=== PATIENT | male | born 1955 | race American Indian/Alaskan Native ===

== ENCOUNTER 2020-03-24 19:37 | Inpatient (IN) | payer SELFPAY ==
[2020-03-24] MEDS ORDERED: SODIUM CHLORIDE 0.9% 1000 ML 1,000 ML IV ONE (23:23)
--- NOTE | 2020-03-24 23:23 | Emergency Department Report ---
HPI - General Chief Complaint: Dyspnea/Respdistress Time Seen by Provider: 03/24/20 23:07 - HPI HPI: This is a 65-year-old -[place] male presents to the emergency department with a complaint of a 2-week history of a mixed dry and productive cough, shortness of breath and intermittent headaches. He does admit to some subjective fevers but has not actually checked his temperature. He denies any chest pain, vomiting, diarrhea, abdominal pain. He has tried some xanc-qqj-lriyvwa Robitussin for his symptoms without much relief. 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 He denies any past medical history. No recent travel. ED Past Medical Hx - Past Medical History Previous Medical History?: No - Surgical History Past Surgical History?: No - Social History Smoking Status: Never Smoker Substance Use Type: None ED Review of Systems ROS: Stated complaint: HEADACHE,SOB,COUGH Other details as noted in HPI Constitutional: chills, fever (Subjective) Eyes: denies: eye pain, vision change ENT: denies: ear pain, throat pain Respiratory: cough, shortness of breath Cardiovascular: denies: chest pain, palpitations Gastrointestinal: denies: abdominal pain, vomiting Genitourinary: denies: dysuria, discharge Musculoskeletal: denies: back pain, arthralgia Skin: denies: rash, lesions Neurological: headache. denies: weakness, numbness Physical Exam - Physical Exam Vital Signs: Vital Signs 03/24/20 03/24/20 20:03 22:59 Temperature 100.2 F H Pulse Rate 99 H 90 Respiratory 18 20 Rate Blood Pressure 100/62 O2 Sat by Pulse 88 90 Oximetry Physical Exam: GENERAL: The patient is well-developed well-nourished. HENT: Normocephalic. Atraumatic. Patient has moist mucous membranes. EYES: Extraocular motions are intact. NECK: Supple. Trachea is midline. CHEST/LUNGS: There is tachypnea but no conversational dyspnea or accessory muscle use. A dry cough is heard during examination. HEART/CARDIOVASCULAR: Regular. There is mild tachycardia. There is no murmur. ABDOMEN: Abdomen is soft, nontender. Patient has normal bowel sounds. SKIN: Skin is warm and dry. NEURO: The patient is awake, alert, and oriented. The patient is cooperative. The patient has no focal neurologic deficits. Normal speech. MUSCULOSKELETAL: There is no tenderness or deformity. There is no evidence of acute injury. ED Course Vital Signs 03/24/20 03/24/20 20:03 22:59 Temperature 100.2 F H Pulse Rate 99 H 90 Respiratory 18 20 Rate Blood Pressure 100/62 O2 Sat by Pulse 88 90 Oximetry ED Medical Decision Making - Lab Data Result diagrams: 03/24/20 23:27 03/24/20 23:27 - EKG Data -: EKG Interpreted by Me EKG shows normal: sinus rhythm, axis, intervals, QRS complexes, ST-T waves Rate: normal - EKG Data When compared to previous EKG there are: previous EKG unavailable Interpretation: normal EKG - Radiology Data Radiology results: image reviewed interpreted by me: Chest x-ray shows bilateral patchy opacities concerning for pneumonia. - Medical Decision Making This patient presents with a two-week history of a cough, shortness of breath and headaches. On examination he has some tachypnea and there is a cough heard. Chest x-ray shows mild patchy bilateral opacities concerning for developing pneumonia. Patient's labs show acute renal failure and elevated inflammatory markers. The patient had a room air pulse ox of 90% through triage and he went down to 84% while in his room. He was placed on 4 L nasal cannula and went up into the low to mid 90s. All this together appears concerning for COVID-19. He was empirically covered with some antibiotics, given IV fluid resuscitation and a dose of Solu-Medrol. The patient will be admitted to the hospital for further evaluation and treatment and was accepted for admission by the hospitalist, Dr. Macedo. Critical Care Time: Yes Critical care time in (mins) excluding proc time.: 35 Critical care attestation.: If time is entered above; I have spent that time in minutes in the direct care of this critically ill patient, excluding procedure time. Critical care time is spent on this patient in doing his initial evaluation, multiple re-evaluations, ordering and interpretation of labs and imaging, supplemental oxygen for his hypoxemia, IV fluid resuscitation and empiric IV antibiotics, multiple discussions with the patient. Critical Care Time: 35 minutes ED Disposition Clinical Impression: Suspected COVID-19 virus infection, Hypoxia, Transaminitis Acute renal failure Qualifiers: Acute renal failure type: unspecified Qualified Code(s): N17.9 - Acute kidney failure, unspecified Disposition: DC-09 OP ADMIT IP TO THIS HOSP Is pt being admited?: Yes Condition: Serious Time of Disposition: 02:28
[2020-03-24] MEDS ORDERED: cefTRIAXone/NS 1 GM/50 ML 1 GM/50 ML BAG IV ONE (23:41)
[2020-03-24] MEDS ORDERED: AZITHROMYCIN 500 MG in SODIUM CHLORIDE 0.9% 250ML 250 ML IV ONE (23:41)
--- NOTE | 2020-03-24 23:41 | XRay Report ---
CHEST 2 VIEWS INDICATION / CLINICAL INFORMATION: cough and GERMAINE. COMPARISON: None available. FINDINGS: SUPPORT DEVICES: None. HEART / MEDIASTINUM: No significant abnormality. LUNGS / PLEURA: Streaky parenchymal disease both lower lobes characteristic for pneumonia No pneumoth orax. ADDITIONAL FINDINGS: No significant additional findings. IMPRESSION: 1. Streaky bilateral bronchopneumonia. Signer Name: Yassine Adair MD Signed: 03/24/2020 11:37 PM Workstation Name: [id number]
[2020-03-24] MEDS ORDERED: ACETAMINOPHEN 325 MG TAB PO ONE (23:42)
[2020-03-24 23:53] LABS: Basophils % (Auto) 0.5 % (0.0-1.8); Hematocrit 38.5 % (35.5-45.6); Hemoglobin 12.2 gm/dl (11.8-15.2); Lymphocytes % (Auto) 12.2 % (13.4-35.0); Mean Corpuscular HGB Conc 32 % (32-34); Mean Corpuscular Volume 94 fl (84-94); Monocytes # (Auto) 0.9 K/mm3 (0.0-0.8); Monocytes % (Auto) 10.6 % (0.0-7.3); Platelet Count 325 K/mm3 (140-440); Red Blood Count 4.08 M/mm3 (3.65-5.03); Red Cell Distribution Width 12.8 % (13.2-15.2)
[2020-03-25 01:39] LABS: Albumin 3.4 g/dL (3.9-5)
[2020-03-25] MEDS ORDERED: methylPREDNISolone Sod Succinate 125 MG/2 ML INJ IV ONE (02:25)
[2020-03-25] MEDS ORDERED: ACETAMINOPHEN 325 MG TAB PO PRN (02:58)
[2020-03-25] MEDS ORDERED: ONDANSETRON 4 MG/2 ML INJ IV PRN (02:58)
[2020-03-25] MEDS ORDERED: MAGNESIUM HYDROXIDE (MOM) ORAL LIQD UDC PO PRN (02:58)
[2020-03-25] MEDS ORDERED: SODIUM CHLORIDE 0.9% 1000 ML 1,000 ML IV SCH (03:00)
--- NOTE | 2020-03-25 03:10 | History and Physical Report ---
History of Present Illness Date of examination: 03/25/20 Date of admission: 03/25/2020 Chief complaint: Cough Generalized body aches and pain History of present illness: 65-year-old -[place]in[place] male with no significant past medical history presenting to the emergency room today complaining of a two-week history of cough, shortness of breath and occasional headaches. Cough has been occasionally productive of some whitish sputum. He has had some subjective f ever at home but denies any chills. He denies any chest pain, no nausea vomiting, no diarrhea, no abdominal pain. 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 He denies any sick contacts and no recent travel. He has used some sqde-sjf-sizmibs cough medication without any significant relief. Evaluation in the emergency room today shows some patchy bilateral infiltrates on the chest x-ray. Patient was also found to have elevated BUN and creatinine and also elevated liver enzymes. He was found to be slightly hypoxic upon arrival in the emergency room He has been admitted for for pneumonia will be ruled out for possible COVID-19. He has been started on empiric IV antibiotics, IV steroids and also placed on isolation precautions. Past History Past Medical History: No medical history Past Surgical History: No surgical history Social history: no significant social history Family history: no significant family history Medications and Allergies Allergies Allergy/AdvReac Type Severity Reaction Status Date / Time No Known Allergies Allergy Unverified 03/24/20 22:57 Active Meds: Active Medications Sodium Chloride (Nacl 0.9% 1000 Ml) 1,000 mls @ 125 mls/hr IV ONCE ONE Stop: 03/25/20 07:22 Last Admin: 03/24/20 23:50 Dose: 125 mls/hr Documented by: Review of Systems Constitutional: fever, chills Ears, nose, mouth and throat: no nasal congestion, no sore throat Cardiovascular: no chest pain, no palpitations Respiratory: cough, shortness of breath Gastrointestinal: no abdominal pain, no nausea, no vomiting, no diarrhea Genitourinary Male: no dysuria, no hematuria, no flank pain Musculoskeletal: no neck pain, no low back pain Integumentary: no rash, no pruritis Neurological: headaches, no confusion Psychiatric: no anxiety, no depression Exam - Constitutional Vitals: Temp Pulse Resp BP Pulse Ox 100.3 F H 79 26 H 98/62 94 03/24/20 23:15 03/25/20 02:30 03/25/20 02:30 03/25/20 02:30 03/25/20 02:30 General appearance: Present: no acute distress, well-nourished - EENT Eyes: Present: PERRL, EOM intact. Absent: scleral icterus ENT: hearing intact, clear oral mucosa, dentition normal - Neck Neck: Present: supple, normal ROM - Respiratory Respiratory effort: normal Respiratory: bilateral: diminished - Cardiovascular Rhythm: regular Heart Sounds: Present: S1 & S2. Absent: gallop, systolic murmur, diastolic murmur, rub - Extremities Extremities: no ischemia, pulses intact, pulses symmetrical, No edema, Full ROM Peripheral Pulses: within normal limits - Abdominal General gastrointestinal: Present: soft, non-tender, non-distended, normal bowel sounds. Absent: mass - Integumentary Integumentary: Present: clear, warm, dry - Musculoskeletal Musculoskeletal: strength equal bilaterally - Psychiatric Psychiatric: appropriate mood/affect, intact judgment & insight, memory intact, cooperative - Neurologic Neurologic: CNII-XII intact, no focal deficits, moves all extremities HEART Score - HEART Score Troponin: Troponin T 0.027 ng/mL (0.00-0.029) 03/24/20 23:27 Results - Labs CBC & Chem 7: 03/24/20 23:27 03/24/20 23:27 Labs: Abnormal lab results 03/24/20 03/24/20 03/24/20 Range/Units 23:27 23:27 23:27 RDW 12.8 L (13.2-15.2) % Lymph % (Auto) 12.2 L (13.4-35.0) % [place]on % (Auto) 10.6 H (0.0-7.3) % Lymph # 1.0 L (1.2-5.4) K/mm3 [place]on # 0.9 H (0.0-0.8) K/mm3 Seg Neutrophils % 76.7 H (40.0-70.0) % D-Dimer 1436.60 H (0-234) ng/mlDDU Sodium 135 L (137-145) mmol/L Chloride 89.0 L (98-107) mmol/L BUN 68 H (9-20) mg/dL Creatinine 4.5 H (0.8-1.5) mg/dL Total Bilirubin 1.30 H (0.1-1.2) mg/dL AST 149 H (5-40) units/L ALT 95 H (7-56) units/L Albumin 3.4 L (3.9-5) g/dL Assessment and Plan - Patient Problems (1) Suspected COVID-19 virus infection Current Visit: Yes Status: Acute Plan to address problem: Patient placed on isolation precautions. He has been placed on empiric IV antibiotics and IV steroid. We will request consult infectious disease for evaluation and recommendation. We will also keep oxygen saturation greater or equal to 94%. (2) Acute renal failure Current Visit: Yes Status: Acute Plan to address problem: Etiology is unclear. No baseline BUN creatinine to compare with. We will place a consult to nephrology for evaluation and recommendation. Meanwhile we will schedule for renal ultrasound. (3) Hypoxia Current Visit: Yes Status: Acute Plan to address problem: Probably secondary to underlying pneumonia. We will keep O2 saturation greater or equal to 94%. (4) Transaminitis Current Visit: Yes Status: Acute Plan to address problem: Will monitor liver enzymes. Will also check hepatitis profile. We will place a consult to gastroenterology for evaluation and recommendation. (5) DVT prophylaxis Current Visit: Yes Status: Acute Plan to address problem: Patient placed on subcutaneous heparin. (6) Full code status Current Visit: Yes Status: Acute
[2020-03-25 04:21] LABS: C-Reactive Protein 22.9 mg/dL (0.00-1.30)
[2020-03-25 04:47] LABS: Hepatitis B Surface Antigen Non-Reactive (Negative); Hepatitis C Virus Antibody Non-Reactive (NonReactive)
[2020-03-25] MEDS: HEPARIN 5,000 UNIT/1 ML VIAL SUB-Q SCH ×3 (06:10→21:50)
[2020-03-25] MEDS ORDERED: cefTRIAXone/NS 2 GM/100 ML 2 GM/100 ML BAG IV ONE (09:36)
[2020-03-25] MEDS: AZITHROMYCIN 500 MG in SODIUM CHLORIDE 0.9% 250ML 250 ML IV SCH (09:41)
[2020-03-25] MEDS: cefTRIAXone/NS 2 GM/100 ML 2 GM/100 ML BAG IV SCH (09:41)
--- NOTE | 2020-03-25 11:15 | Consultation ---
History of Present Illness - Reason for Consult Consult date: 03/25/20 acute renal failure - History of Present Illness The patient is a 65 YO AAM with no significant past medical history who pre sented to [facility] ED 03/24 with complain of 2 week history of cough, shortness of breath, fatigue, intermittent fever with chills, occasional headaches, cough occasionally productive of some whitish sputum, decreased energy, decreased smell and taste. He denies any chest pain, nausea, vomiting, diarrhea, abdominal pain, dizziness, syncope, leg swelling, dysuria, hematuria or rash. 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 He denies any sick contacts and no recent travel. He has used some upje-bpn-txmflso cough medication without any significant relief. He was found have sats of 88% on arrival to ED. Evaluation in the emergency room today shows some patchy bilateral infiltrates on the chest x-ray. Patient was also found to have BUN of 68, creatinine 4.5 and also elevated liver enzymes. COVID-19 test came back positive. He has been admitted for for COVID-19 pneumonia. Nephrology was consulted for further evaluation and treatment of ARIELLA. Past History Past Medical History: No medical history, other (See HPI.) Past Surgical History: No surgical history Social history: no significant social history Family history: no significant family history Medications and Allergies Allergies Allergy/AdvReac Type Severity Reaction Status Date / Time No Known Allergies Allergy Unverified 03/24/20 22:57 Home Medications Medication Instructions Recorded Confirmed Last Taken Type No Known Home Medications [No 03/25/20 03/25/20 Unknown History Reported Home Medications] Active Meds: Active Medications Acetaminophen (Tylenol) 650 mg PO Q4H PRN PRN Reason: Pain MILD(1-3)/Fever >100.5/SAGASTUME Heparin Sodium (Porcine) (Heparin) 5,000 unit SUB-Q Q8HR INDIRA Last Admin: 03/25/20 06:10 Dose: 5,000 unit Documented by: Ceftriaxone Sodium (Rocephin/Ns 2 Gm/100 Ml) 2 gm in 100 mls @ 200 mls/hr IV Q24HR INDIRA; Protocol Last Admin: 03/25/20 09:41 Dose: 200 mls/hr Documented by: Azithromycin 500 mg/ Sodium (Chloride) 250 mls @ 250 mls/hr IV Q24HR INDIRA; Protocol Last Admin: 03/25/20 09:41 Dose: 250 mls/hr Documented by: Sodium Chloride (Nacl 0.9% 1000 Ml) 1,000 mls @ 75 mls/hr IV DIRECT INDIRA Magnesium Hydroxide (Milk Of Magnesia) 30 ml PO Q4H PRN PRN Reason: Constipation Ondansetron HCl (Zofran) 4 mg IV Q8H PRN PRN Reason: Nausea And Vomiting Sodium Chloride (Sodium Chloride Flush Syringe 10 Ml) 10 ml IV BID INDIRA Last Admin: 03/25/20 09:41 Dose: 10 ml Documented by: Sodium Chloride (Sodium Chloride Flush Syringe 10 Ml) 10 ml IV PRN PRN PRN Reason: LINE FLUSH Review of Systems Constitutional: fever, chills, anorexia, fatigue, malaise, no weight loss, no weight gain Cardiovascular: no chest pain, no orthopnea, no edema, no syncope, no lightheadedness, no shortness of breath, no dyspnea on exertion Respiratory: cough, cough with sputum, no excessive sputum, no hemoptysis Gastrointestinal: nausea, vomiting, melena, no abdominal pain, no diarrhea Genitourinary Male: no dysuria, no hematuria Integumentary: no rash Neurological: no convulsions, no aphasia, no change in speech, no change in mentation, no confusion Exam - Vital Signs Vital signs: Vital Signs Temp Pulse Resp BP Pulse Ox 100.2 F H 99 H 18 100/62 88 03/24/20 20:03 03/24/20 20:03 03/24/20 20:03 03/24/20 20:03 03/24/20 20:03 - General Appearance General appearance: well-developed, well-nourished, appears stated age, other (not in distress) EENT: ATNC, PERRL, hearing intact, vision intact Neck: Present: neck supple, trachea midline Respiratory: Clear to Ascultation Heart: regular, S1S2, faint heart tones Gastrointestinal: Present: normoactive bowel sounds. Absent: tenderness, distended Integumentary: no rash, warm and dry Neurologic: no focal deficit, no asterixis, alert and oriented x3 Musculoskeletal: Present: other (no edema) Psychiatric: cooperative Results - Lab Results 03/26/20 07:14 03/26/20 07:14 Most recent lab results Calcium 9.0 mg/dL (8.4-10.2) 03/24/20 23:27 - Image Kidney/bladder ultrasound: pending Assessment and Plan 1. Acute kidney injury: Vasomotor ARIELLA in the setting volume depletion. Urine studies and Renal US ordered. Baseline renal function is unknown. Monitor renal function. Avoid nephrotoxic agents. Meds dosage based on GFR. 2. FEN: Mild Hyponatremia, monitor. Monitor lytes and volume status. 3. Bilateral PNA: 2/ COVID-19 PNA. On multiple abx. Follow cultures. ID consulted. 4. COVID-19 infection: ID consulted. 5. Elevated LFTs: Seen by GI. Monitor.
--- NOTE | 2020-03-25 11:54 | Gastroenterology Consultation ---
History of Present Illness - Reason for Consult Consult date: 03/25/20 elevated liver enzymes Requesting physician: BETO NAYLOR - History of Present Illness This is a 65 yo AAM with no significant PMH admitted overnight for 2 week hx of cough, sob, fatigue, fever/chills, and SAGASTUME. Patient is admitted for pneumonia and rule out COVID 19. Gi consulted for evaluation of elevated liver enzymes. History obtained via phone with the patient to minimize exposure. Patient denies any prior h/o liver disease or family hx of liver disease. Denies abdominal pain, nausea/vomiting or diarrhea. No new medications. medication reviewed. Past History Past Medical History: No medical history Past Surgical History: No surgical history Social history: no significant social history Family history: no significant family history Medications and Allergies Allergies Allergy/AdvReac Type Severity Reaction Status Date / Time No Known Allergies Allergy Unverified 03/24/20 22:57 Home Medications Medication Instructions Recorded Confirmed Last Taken Type No Known Home Medications [No 03/25/20 03/25/20 Unknown History Reported Home Medications] Active Meds: Active Medications Acetaminophen (Tylenol) 650 mg PO Q4H PRN PRN Reason: Pain MILD(1-3)/Fever >100.5/SAGASTUME Heparin Sodium (Porcine) (Heparin) 5,000 unit SUB-Q Q8HR INDIRA Last Admin: 03/25/20 06:10 Dose: 5,000 unit Documented by: Ceftriaxone Sodium (Rocephin/Ns 2 Gm/100 Ml) 2 gm in 100 mls @ 200 mls/hr IV Q24HR INDIRA; Protocol Last Admin: 03/25/20 09:41 Dose: 200 mls/hr Documented by: Azithromycin 500 mg/ Sodium (Chloride) 250 mls @ 250 mls/hr IV Q24HR INDIRA; Protocol Last Admin: 03/25/20 09:41 Dose: 250 mls/hr Documented by: Sodium Chloride (Nacl 0.9% 1000 Ml) 1,000 mls @ 75 mls/hr IV DIRECT INDIRA Magnesium Hydroxide (Milk Of Magnesia) 30 ml PO Q4H PRN PRN Reason: Constipation Ondansetron HCl (Zofran) 4 mg IV Q8H PRN PRN Reason: Nausea And Vomiting Sodium Chloride (Sodium Chloride Flush Syringe 10 Ml) 10 ml IV BID INDIRA Last Admin: 03/25/20 09:41 Dose: 10 ml Documented by: Sodium Chloride (Sodium Chloride Flush Syringe 10 Ml) 10 ml IV PRN PRN PRN Reason: LINE FLUSH Review of Systems - Review of Systems All systems: negative Constitutional: weight loss, fever, chills, fatigue, weakness Ears, Nose, Throat: no epistaxis Cardiovascular: no chest pain Respiratory: cough, shortness of breath Gastrointestinal: no abdominal pain, no nausea, no vomiting, no diarrhea Musculoskeletal: no gait dysfunction Neurological: weakness Endocrine: no cold intolerance Hematologic/Lymphatic: no easy bruising Exam - Exam Narrative Exam: Patient not examined as patient is suspected to have COVID-19 and will minimize exposure. - Constitutional Vital Signs: Temp Pulse Resp BP Pulse Ox 98.0 F 87 30 H 110/63 96 03/25/20 10:50 03/25/20 10:50 03/25/20 10:50 03/25/20 10:50 03/25/20 10:50 - Labs CBC & Chem 7: 03/24/20 23:27 03/24/20 23:27 Lab Results: Laboratory Results - last 24 hr 03/24/20 03/24/20 03/24/20 23:27 23:27 23:27 WBC 8.1 RBC 4.08 Hgb 12.2 Hct 38.5 MCV 94 MCH 30 MCHC 32 RDW 12.8 L Plt Count 325 Lymph % (Auto) 12.2 L Sac % (Auto) 10.6 H Eos % (Auto) 0.0 Baso % (Auto) 0.5 Lymph # 1.0 L Sac # 0.9 H Eos # 0.0 Baso # 0.0 Seg Neutrophils % 76.7 H Seg Neutrophils # 6.2 D-Dimer 1436.60 H Sodium 135 L Potassium 3.6 Chloride 89.0 L Carbon Dioxide 25 Anion Gap 25 BUN 68 H Creatinine 4.5 H Estimated GFR 16 BUN/Creatinine Ratio 15 Glucose 98 Calcium 9.0 Ferritin Total Bilirubin 1.30 H AST 149 H ALT 95 H Alkaline Phosphatase 49 Lactate Dehydrogenase 933 H Troponin T 0.027 C-Reactive Protein 22.90 H NT-Pro-B Natriuret Pep 158.2 Total Protein 7.9 Albumin 3.4 L Albumin/Globulin Ratio 0.8 Procalcitonin Hepatitis A IgM Ab Hep Bs Antigen Hep B Core IgM Ab Hepatitis C Antibody 03/24/20 03/24/2020 23:27 23:27 03:42 WBC RBC Hgb Hct MCV MCH MCHC RDW Plt Count Lymph % (Auto) Sac % (Auto) Eos % (Auto) Baso % (Auto) Lymph # Sac # Eos # Baso # Seg Neutrophils % Seg Neutrophils # D-Dimer Sodium Potassium Chloride Carbon Dioxide Anion Gap BUN Creatinine Estimated GFR BUN/Creatinine Ratio Glucose Calcium Ferritin 43969.0 H Total Bilirubin AST ALT Alkaline Phosphatase Lactate Dehydrogenase Troponin T C-Reactive Protein NT-Pro-B Natriuret Pep Total Protein Albumin Albumin/Globulin Ratio Procalcitonin 6.05 Hepatitis A IgM Ab -1 Hep Bs Antigen Non-reactive Hep B Core IgM Ab Non-reactive Hepatitis C Antibody Non-reactive Assessment and Plan # Elevated liver enzymes - elevated ferritin, which may be due to COVID-19, test pending. - ddx including viral hepatitis, 2/2 sepsis - unknown prior labs to compare Rec - recommend checking RUQ US. - monitor CMP.
--- NOTE | 2020-03-25 15:41 | Consultation ---
History of Present Illness - Reason for Consult Consult date: 03/25/20 pneumonia, COVID Requesting physician: BETO NAYLOR - History of Present Illness The patient is a 65-year-old male with no significant past medical history came to the emergency room with complaints of cough, shortness of breath and headaches. Chest x-ray showed bilateral patchy infiltrates. COVID-19 PCR came back positive. Oxygen saturation is 87% on 2 L by nasal cannula. Started on empiric abx. Also creatinine elevated, nephrology consulted and GI consulted due to elevated LFTs. D-dimer 1436, ferritin 10559, AST 149, ALT 95, LDH 933, CRP 22.9, procalcitonin 6.05. Creatinine is 4.5. Review of Systems: reviewed in the chart, unable to obtain directly due to PPE shortage and preservation Past History Past Medical History: No medical history Past Surgical History: No surgical history Social history: no significant social history Family history: no significant family history Medications and Allergies Allergies Allergy/AdvReac Type Severity Reaction Status Date / Time No Known Allergies Allergy Unverified 03/24/20 22:57 Home Medications Medication Instructions Recorded Confirmed Last Taken Type No Known Home Medications [No 03/25/20 03/25/20 Unknown History Reported Home Medications] Active Meds: Active Medications Acetaminophen (Tylenol) 650 mg PO Q4H PRN PRN Reason: Pain MILD(1-3)/Fever >100.5/SAGASTUME Heparin Sodium (Porcine) (Heparin) 5,000 unit SUB-Q Q8HR INDIRA Last Admin: 03/25/20 14:22 Dose: 5,000 unit Documented by: Ceftriaxone Sodium (Rocephin/Ns 2 Gm/100 Ml) 2 gm in 100 mls @ 200 mls/hr IV Q24HR INDIRA; Protocol Last Admin: 03/25/20 09:41 Dose: 200 mls/hr Documented by: Azithromycin 500 mg/ Sodium (Chloride) 250 mls @ 250 mls/hr IV Q24HR INDIRA; Protocol Last Admin: 03/25/20 09:41 Dose: 250 mls/hr Documented by: Sodium Chloride (Nacl 0.9% 1000 Ml) 1,000 mls @ 75 mls/hr IV DIRECT INDIRA Magnesium Hydroxide (Milk Of Magnesia) 30 ml PO Q4H PRN PRN Reason: Constipation Ondansetron HCl (Zofran) 4 mg IV Q8H PRN PRN Reason: Nausea And Vomiting Sodium Chloride (Sodium Chloride Flush Syringe 10 Ml) 10 ml IV BID INDIRA Last Admin: 03/25/20 09:41 Dose: 10 ml Documented by: Sodium Chloride (Sodium Chloride Flush Syringe 10 Ml) 10 ml IV PRN PRN PRN Reason: LINE FLUSH Physical Examination - Physical Exam Narrative exam: Physical Exam (reviewed in chart due to PPE conservation) Constitutional: limited due to PPE conservation strategy Head, Ears, Nose: limited due to PPE conservation strategy Eyes: limited due to PPE conservation strategy Neck: limited due to PPE conservation strategy Oral: limited due to PPE conservation strategy Cardiovascular: limited due to PPE conservation strategy Respiratory: limited due to PPE conservation strategy GI: limited due to PPE conservation strategy Musculoskeletal: limited due to PPE conservation strategy Skin: limited due to PPE conservation strategy Hem/Lymphatic: limited due to PPE conservation strategy Psych: limited due to PPE conservation strategy Neurological: limited due to PPE conservation strategy - Constitutional Vitals: Vital Signs Temp Pulse Resp BP Pulse Ox 98.6 F 86 22 118/76 87 03/25/20 11:47 03/25/20 11:47 03/25/20 11:47 03/25/20 11:47 03/25/20 11:47 Temperature -Last 24 Hours Temperature 98.6 F Temperature 98.0 F Temperature 98.2 F Temperature 100.3 F Temperature 100.2 F Results - Labs CBC & Chem 7: 03/24/20 23:27 03/24/20 23:27 Labs: Abnormal lab results 03/24/20 03/24/20 03/24/20 Range/Units 23:27 23:27 23:27 RDW 12.8 L (13.2-15.2) % Lymph % (Auto) 12.2 L (13.4-35.0) % [place] % (Auto) 10.6 H (0.0-7.3) % Lymph # 1.0 L (1.2-5.4) K/mm3 [place] # 0.9 H (0.0-0.8) K/mm3 Seg Neutrophils % 76.7 H (40.0-70.0) % D-Dimer 1436.60 H (0-234) ng/mlDDU Sodium 135 L (137-145) mmol/L Chloride 89.0 L (98-107) mmol/L BUN 68 H (9-20) mg/dL Creatinine 4.5 H (0.8-1.5) mg/dL Ferritin (13.0-400.0) ng/mL Total Bilirubin 1.30 H (0.1-1.2) mg/dL AST 149 H (5-40) units/L ALT 95 H (7-56) units/L Lactate Dehydrogenase 933 H (91-180) units/L C-Reactive Protein 22.90 H (0.00-1.30) mg/dL Albumin 3.4 L (3.9-5) g/dL Coronavirus (PCR) (Negative) 03/24/20 03/25/20 Range/Units 23:27 10:00 RDW (13.2-15.2) % Lymph % (Auto) (13.4-35.0) % [place] % (Auto) (0.0-7.3) % Lymph # (1.2-5.4) K/mm3 [place] # (0.0-0.8) K/mm3 Seg Neutrophils % (40.0-70.0) % D-Dimer (0-234) ng/mlDDU Sodium (137-145) mmol/L Chloride (98-107) mmol/L BUN (9-20) mg/dL Creatinine (0.8-1.5) mg/dL Ferritin 66980.0 H (13.0-400.0) ng/mL Total Bilirubin (0.1-1.2) mg/dL AST (5-40) units/L ALT (7-56) units/L Lactate Dehydrogenase (91-180) units/L C-Reactive Protein (0.00-1.30) mg/dL Albumin (3.9-5) g/dL Coronavirus (PCR) Positive A (Negative) - Imaging and Cardiology Chest x-ray: report reviewed, image reviewed (Chest x-ray showed streaky bilateral bronchopneumonia) Assessment and Plan Cultures: Coronavirus PCR: Positive Blood culture: in process A/P: 65-year-old male with no significant past medical history came to the emergency room with complaints of cough, shortness of breath and headaches: #Bilateral pneumonia: Secondary to COVID-19. Severely elevated markers. D-dimer 1436, ferritin 61469, AST 149, ALT 95, LDH 933, CRP 22.9, procalcitonin 6.05. #Acute hypoxic respiratory failure: #Acute renal failure: Creatinine 4.5 on admission #Elevated LFTs: Likely from COVID-19 and possible cytokine storm Recs: IV/PO Dexamethasone 6 mg daily x 10 days Not a candidate for Remdesivir due to renal function Actemra ordered due to severely elevated ferritin prophylactic anticoagulation based on d-dimer but renally adjusted LMWH 0.5 mg/kg q24 hrs trend ferritin, LDH, d-dimer, CRP every 2-3 days for risk stratification and to assess disease progression Continue empiric antibiotics for 3-5 days Nuvia Novoa MD, FACP [facility] ([facility] C: [phone] O: [phone] F: [phone]
[2020-03-25] MEDS: DEXAMETHASONE 4 MG TAB PO SCH (15:54)
[2020-03-25] MEDS ORDERED: TOCILIZUMAB 400 MG in SODIUM CHLORIDE 0.9% 100 ML IV ONE (16:47)
[2020-03-26] MEDS: HEPARIN 5,000 UNIT/1 ML VIAL SUB-Q SCH ×3 (05:30→22:37)
[2020-03-26 08:08] LABS: Basophils % (Auto) 0.2 % (0.0-1.8); Hematocrit 35.8 % (35.5-45.6); Hemoglobin 11.7 gm/dl (11.8-15.2); Lymphocytes # (Auto) 0.8 K/mm3 (1.2-5.4); Mean Corpuscular HGB Conc 33 % (32-34); Mean Corpuscular Volume 93 fl (84-94); Monocytes # (Auto) 1.4 K/mm3 (0.0-0.8); Monocytes % (Auto) 12.5 % (0.0-7.3); Platelet Count 467 K/mm3 (140-440); Red Blood Count 3.85 M/mm3 (3.65-5.03); Red Cell Distribution Width 12.7 % (13.2-15.2)
[2020-03-26 08:14] LABS: Calcium 8.7 mg/dL (8.4-10.2)
[2020-03-26 08:17] LABS: Bilirubin,Direct 0.4 mg/dL (0-0.2)
[2020-03-26 08:19] LABS: INR 1.05 (0.87-1.13)
--- NOTE | 2020-03-26 10:01 | Progress Note ---
Assessment and Plan 1. Acute kidney injury: Vasomotor ARIELLA in the setting volume depletion. Urine studies and Renal US ordered, pending. Baseline renal function is unknown. Reanl function is improving. Monitor renal function. Avoid nephrotoxic agents. Meds dosage based on GFR. 2. FEN: Mild Hyponatremia, improved. Replete K. Monitor lytes and volume status. 3. Bilateral PNA: 2/2 COVID-19 PNA. On multiple abx. Follow cultures. Followed by ID. 4. COVID-19 infection: Followed by ID. 5. Elevated LFTs: Seen by GI. Improving, monitor. - Subjective: Patient was seen and examined at the bedside. Doing better today. Eating and drinking fluids well. - General Appearance: General appearance: well-developed, appears stated age, no distress HEENT: ATNC, Pupils equal Neck: neck supple, trachea midline Respiratory: Clear to Ascultation Heart: regular, S1S2, no murmur Gastrointestinal: soft, bowel sounds heard, not tender Integumentary: no rash, warm and dry Neurologic: AOX4, non-focal Ext: no edema Subjective Date of service: 03/26/20 Objective - Vital Signs Vital signs: Vital Signs - 12hr 03/25/20 03/25/20 03/26/20 22:11 23:27 02:27 Temperature 97.6 F Pulse Rate 80 Respiratory 20 Rate Blood Pressure 138/84 O2 Sat by Pulse 91 93 Oximetry 03/26/20 07:35 Temperature Pulse Rate Respiratory Rate Blood Pressure O2 Sat by Pulse 95 Oximetry - Lab 03/26/20 07:14 03/26/20 07:14 Most recent lab results Calcium 8.7 mg/dL (8.4-10.2) 03/26/20 07:14 Medications & Allergies - Medications Allergies/Adverse Reactions: Allergies No Known Allergies Allergy (Unverified 03/24/20 22:57) Home Medications: Home Medications Medication Instructions Recorded Confirmed Last Taken Type No Known Home Medications [No 03/25/20 03/25/20 Unknown History Reported Home Medications] Active Medications: Generic Name Dose Route Start Last Admin Trade Name Freq PRN Reason Stop Dose Admin Acetaminophen 650 mg 03/25/20 02:58 Tylenol PO Q4H PRN Pain MILD(1-3)/Fever >100.5/SAGASTUME Dexamethasone 6 mg 03/25/20 16:00 03/25/20 15:54 Decadron PO 04/04/20 15:59 6 mg DAILY INDIRA Administration Heparin Sodium (Porcine) 5,000 unit 03/25/20 06:00 03/26/20 05:30 Heparin SUB-Q 5,000 unit Q8HR INDIRA Administration Ceftriaxone Sodium 2 gm in 100 mls @ 200 mls/hr 03/25/20 10:00 03/25/20 10:15 Rocephin/Ns 2 Gm/100 Ml IV Infused Q24HR INDIRA Infusion Protocol Azithromycin 500 mg/ Sodium 250 mls @ 250 mls/hr 03/25/20 10:00 03/25/20 10:50 Chloride IV Infused Q24HR INDIRA Infusion Protocol Sodium Chloride 1,000 mls @ 75 mls/hr 03/25/20 03:00 Nacl 0.9% 1000 Ml IV DIRECT INDIRA Magnesium Hydroxide 30 ml 03/25/20 02:58 Milk Of Magnesia PO Q4H PRN Constipation Ondansetron HCl 4 mg 03/25/20 02:58 Zofran IV Q8H PRN Nausea And Vomiting Sodium Chloride 10 ml 03/25/20 10:00 03/25/20 21:50 Sodium Chloride Flush Syringe 10 Ml IV 10 ml BID INDIRA Administration Sodium Chloride 10 ml 03/25/20 02:58 Sodium Chloride Flush Syringe 10 Ml IV PRN PRN LINE FLUSH
--- NOTE | 2020-03-26 10:21 | Event Note ---
Date: 03/26/20 LFT trending down, patient found to be positive for coronavirus Suspect elevated LFT due to the acute infection. Continue to trend LFT daily but expect stability/improvement of LFT over the next 2 weeks (if his clinical situation deteriorates that will cause a moderate bump in LFT). After discharge when patient follows up with PCP, his LFT should be rechecked then. If not fully resolved then he can see GI as an outpatient for full eval for possible underlying liver issue, however no further inpatient eval required based upon labs/presentation GI will sign off please call back with questions/concerns.
[2020-03-26] MEDS ORDERED: POTASSIUM CHLORIDE ER 20 MEQ TAB PO ONE ×2 (11:18→14:00)
[2020-03-26] MEDS: cefTRIAXone/NS 2 GM/100 ML 2 GM/100 ML BAG IV SCH (11:23)
[2020-03-26] MEDS: DEXAMETHASONE 4 MG TAB PO SCH (11:24)
[2020-03-26] MEDS: AZITHROMYCIN 500 MG in SODIUM CHLORIDE 0.9% 250ML 250 ML IV SCH (13:30)
--- NOTE | 2020-03-26 20:39 | Progress Note ---
Assessment and Plan - Patient Problems (1) Acute hypoxemic respiratory failure Current Visit: Yes Status: Acute Plan to address problem: Supplemental oxygen, nebulizer therapy, pulse oximetry, noninvasive positive pressure ventilation as clinically indicated, pulmonary toilet. (2) Acute kidney injury (ARIELLA) with acute tubular necrosis (ATN) Current Visit: Yes Status: Acute Plan to address problem: Nephrology team consulted, IV fluid resuscitation therapy as clinically indicated, monitor urine output every shift, monitor serum creatinine daily (3) Pneumonia Current Visit: Yes Status: Acute Plan to address problem: Pneumonia protocol: Chest x-ray, IV antibiotic therapy, blood culture, nebulizer therapy, pulse oximetry, (4) Suspected COVID-19 virus infection Current Visit: Yes Status: Acute Plan to address problem: Coronavirus positive PCR. Infectious disease service consulted, continue IV steroid therapy, prone positioning while in bed, contact precaution, isolation precautions, pulmonary toilet. (5) DVT prophylaxis Current Visit: Yes Status: Acute Plan to address problem: SCD to bilateral lower extremities while in bed, patient is ambulatory. History Interval history: 65 YO Male HD #2 with Coronavirus Positive PCR, ARIELLA with ATN, Pneumonia, Acute Respiratory Failure, Elevated LFT's. Patient acknowledges continued shortness of breath. Patient denies pain. Patient counseled regarding out of bed to chair, early ambulation, and prone positioning while in bed. Hospitalist Physical - Constitutional Vitals: Temp Pulse Resp BP Pulse Ox 98.3 F 80 22 116/72 91 03/26/20 17:25 03/26/20 17:25 03/26/20 17:25 03/26/20 17:25 03/26/20 17:25 General appearance: Present: no acute distress, well-nourished - EENT Eyes: Present: PERRL, EOM intact ENT: hearing intact - Neck Neck: Present: supple - Respiratory Respiratory effort: labored Respiratory: bilateral: diminished - Cardiovascular Rhythm: regular Heart Sounds: Present: S1 & S2 - Extremities Extremities: no ischemia Peripheral Pulses: within normal limits - Abdominal General gastrointestinal: soft, non-tender, non-distended - Integumentary Integumentary: Present: clear, dry - Psychiatric Psychiatric: appropriate mood/affect, cooperative - Neurologic Neurologic: CNII-XII intact HEART Score - HEART Score Troponin: Troponin T 0.027 ng/mL (0.00-0.029) 07/10/20 23:27 Results - Labs CBC & Chem 7: 03/26/20 07:14 03/26/20 07:14 Labs: Laboratory Last Values WBC 11.3 K/mm3 (4.5-11.0) H 03/26/20 07:14 RBC 3.85 M/mm3 (3.65-5.03) 03/26/20 07:14 Hgb 11.7 gm/dl (11.8-15.2) L 03/26/20 07:14 Hct 35.8 % (35.5-45.6) 03/26/20 07:14 MCV 93 fl (84-94) 03/26/20 07:14 MCH 30 pg (28-32) 03/26/20 07:14 MCHC 33 % (32-34) 03/26/20 07:14 RDW 12.7 % (13.2-15.2) L 03/26/20 07:14 Plt Count 467 K/mm3 (140-440) H 03/26/20 07:14 Lymph % (Auto) 7.0 % (13.4-35.0) L 03/26/20 07:14 [place] % (Auto) 12.5 % (0.0-7.3) H 03/26/20 07:14 Eos % (Auto) 0.0 % (0.0-4.3) 03/26/20 07:14 Baso % (Auto) 0.2 % (0.0-1.8) 03/26/20 07:14 Lymph # 0.8 K/mm3 (1.2-5.4) L 03/26/20 07:14 [place] # 1.4 K/mm3 (0.0-0.8) H 03/26/20 07:14 Eos # 0.0 K/mm3 (0.0-0.4) 03/26/20 07:14 Baso # 0.0 K/mm3 (0.0-0.1) 03/26/20 07:14 Seg Neutrophils % 80.3 % (40.0-70.0) H 03/26/20 07:14 Seg Neutrophils # 9.1 K/mm3 (1.8-7.7) H 03/26/20 07:14 PT 13.5 Sec. (12.2-14.9) 03/26/20 07:14 INR 1.05 (0.87-1.13) 03/26/20 07:14 D-Dimer 1436.60 ng/mlDDU (0-234) H 03/24/20 23:27 Sodium 140 mmol/L (137-145) 03/26/20 07:14 Potassium 3.3 mmol/L (3.6-5.0) L 03/26/20 07:14 Chloride 97.6 mmol/L (98-107) L 03/26/20 07:14 Carbon Dioxide 29 mmol/L (22-30) 03/26/20 07:14 Anion Gap 17 mmol/L 03/26/20 07:14 BUN 72 mg/dL (9-20) H 03/26/20 07:14 Creatinine 2.1 mg/dL (0.8-1.5) H D 03/26/20 07:14 Estimated GFR 39 ml/min 03/26/20 07:14 BUN/Creatinine Ratio 34 % 03/26/20 07:14 Glucose 131 mg/dL (75-100) H 03/26/20 07:14 Calcium 8.7 mg/dL (8.4-10.2) 03/26/20 07:14 Ferritin 53151.0 ng/mL (13.0-400.0) H 03/24/20 23:27 Total Bilirubin 1.10 mg/dL (0.1-1.2) 03/26/20 07:14 Direct Bilirubin 0.4 mg/dL (0-0.2) H 03/26/20 07:14 Indirect Bilirubin 0.7 mg/dL 03/26/20 07:14 AST 55 units/L (5-40) H 03/26/20 07:14 ALT 65 units/L (7-56) H 03/26/20 07:14 Alkaline Phosphatase 41 units/L (35-129) 03/26/20 07:14 Lactate Dehydrogenase 933 units/L (91-180) H 03/24/20 23:27 Troponin T 0.027 ng/mL (0.00-0.029) 03/24/20 23:27 C-Reactive Protein 22.90 mg/dL (0.00-1.30) H 07/10/20 23:27 NT-Pro-B Natriuret Pep 158.2 pg/mL (0-900) 03/24/20 23:27 Total Protein 6.5 g/dL (6.3-8.2) 03/26/20 07:14 Albumin 3.0 g/dL (3.9-5) L 03/26/20 07:14 Albumin/Globulin Ratio 0.9 % 03/26/20 07:14 Procalcitonin 6.05 ng/mL (<0.15) 03/24/20 23:27 Coronavirus (PCR) Positive (Negative) A 03/25/20 10:00 Hepatitis A IgM Ab -1 (NonReactive) 03/25/20 03:42 Hep Bs Antigen Non-reactive (Negative) 03/25/20 03:42 Hep B Core IgM Ab Non-reactive (NonReactive) 03/25/20 03:42 Hepatitis C Antibody Non-reactive (NonReactive) 03/25/20 03:42 Microbiology: Microbiology 03/24/20 23:51 Peripheral/Venous Blood Culture - Preliminary NO GROWTH AFTER 24 HOURS 03/24/20 23:27 Peripheral/Venous Blood Culture - Preliminary NO GROWTH AFTER 24 HOURS Steele/IV: Voiding Method Toilet IV Catheter Type [Left INT / Saline Lock Antecubital] Active Medications - Current Medications Current Medications: Generic Name Dose Route Start Last Admin Trade Name Freq PRN Reason Stop Dose Admin Acetaminophen 650 mg 03/25/20 02:58 Tylenol PO Q4H PRN Pain MILD(1-3)/Fever >100.5/SAGASTUME Dexamethasone 6 mg 03/25/20 16:00 03/26/20 11:24 Decadron PO 04/04/20 15:59 6 mg DAILY INDIRA Administration Heparin Sodium (Porcine) 5,000 unit 03/25/20 06:00 03/26/20 14:07 Heparin SUB-Q 5,000 unit Q8HR INDIRA Administration Ceftriaxone Sodium 2 gm in 100 mls @ 200 mls/hr 03/25/20 10:00 03/26/20 12:06 Rocephin/Ns 2 Gm/100 Ml IV Infused Q24HR INDIRA Infusion Protocol Azithromycin 500 mg/ Sodium 250 mls @ 250 mls/hr 03/25/20 10:00 03/26/20 14:40 Chloride IV Infused Q24HR INDIRA Infusion Protocol Sodium Chloride 1,000 mls @ 75 mls/hr 03/25/20 03:00 Nacl 0.9% 1000 Ml IV DIRECT INDIRA Magnesium Hydroxide 30 ml 03/25/20 02:58 Milk Of Magnesia PO Q4H PRN Constipation Ondansetron HCl 4 mg 03/25/20 02:58 Zofran IV Q8H PRN Nausea And Vomiting Sodium Chloride 10 ml 03/25/20 10:00 03/26/20 14:05 Sodium Chloride Flush Syringe 10 Ml IV 10 ml BID INDIRA Administration Sodium Chloride 10 ml 03/25/20 02:58 Sodium Chloride Flush Syringe 10 Ml IV PRN PRN LINE FLUSH
[2020-03-27 05:08] LABS: Calcium 8.6 mg/dL (8.4-10.2)
[2020-03-27] MEDS: HEPARIN 5,000 UNIT/1 ML VIAL SUB-Q SCH ×3 (05:23→21:45)
[2020-03-27] MEDS: cefTRIAXone/NS 2 GM/100 ML 2 GM/100 ML BAG IV SCH (12:04)
[2020-03-27] MEDS: DEXAMETHASONE 4 MG TAB PO SCH (12:05)
--- NOTE | 2020-03-27 12:38 | Progress Note ---
Assessment and Plan 1. Acute kidney injury: Vasomotor ARIELLA in the setting volume depletion. Urine studies and Renal US ordered, pending. Baseline renal function is unknown. Reanl function continue to improve, much better now. Monitor renal function. Avoid nephrotoxic agents. Meds dosage based on GFR. 2. FEN: Mild Hyponatremia, improved. Replete K as needed. Monitor lytes and volume status. 3. Bilateral PNA: 2/2 COVID-19 PNA. On multiple abx. Follow cultures. Followed by ID. 4. COVID-19 infection: Followed by ID. 5. Elevated LFTs: Seen by GI. Improving, monitor. Will sign off. F/u in the office in 1-2 weeks. - Subjective: Patient was seen and examined at the bedside. Doing much better. - General Appearance: General appearance: well-developed, appears stated age, no distress HEENT: ATNC, Pupils equal Neck: neck supple, trachea midline Respiratory: Clear to Ascultation Heart: regular, S1S2, no murmur Gastrointestinal: soft, bowel sounds heard, not tender Integumentary: no rash, warm and dry Neurologic: AOX4, non-focal Ext: no edema Subjective Date of service: 03/27/20 Objective - Vital Signs Vital signs: Vital Signs - 12hr 03/27/20 03/27/20 04:24 11:01 Temperature 99.2 F Pulse Rate 72 Respiratory 20 Rate Blood Pressure 119/61 O2 Sat by Pulse 91 94 Oximetry - Lab 03/26/20 07:14 03/27/20 04:25 Most recent lab results Calcium 8.6 mg/dL (8.4-10.2) 03/27/20 04:25 Phosphorus 3.40 mg/dL (2.5-4.5) 03/27/20 04:25 Magnesium 2.90 mg/dL (1.7-2.3) H 03/27/20 04:25 Medications & Allergies - Medications Allergies/Adverse Reactions: Allergies No Known Allergies Allergy (Unverified 03/24/20 22:57) Home Medications: Home Medications Medication Instructions Recorded Confirmed Last Taken Type No Known Home Medications [No 03/25/20 03/25/20 Unknown History Reported Home Medications] Active Medications: Generic Name Dose Route Start Last Admin Trade Name Freq PRN Reason Stop Dose Admin Acetaminophen 650 mg 03/25/20 02:58 Tylenol PO Q4H PRN Pain MILD(1-3)/Fever >100.5/SAGASTUME Azithromycin 500 mg 03/28/20 10:00 Zithromax PO QDAY INDIRA Dexamethasone 6 mg 03/25/20 16:00 03/27/20 12:05 Decadron PO 04/04/20 15:59 6 mg DAILY INDIRA Administration Heparin Sodium (Porcine) 5,000 unit 03/25/20 06:00 03/27/20 05:23 Heparin SUB-Q 5,000 unit Q8HR INDIRA Administration Ceftriaxone Sodium 2 gm in 100 mls @ 200 mls/hr 03/25/20 10:00 03/27/20 12:04 Rocephin/Ns 2 Gm/100 Ml IV 200 mls/hr Q24HR INDIRA Administration Protocol Azithromycin 500 mg/ Sodium 250 mls @ 250 mls/hr 03/25/20 10:00 03/26/20 14:40 Chloride IV 03/27/20 14:00 Infused Q24HR INDIRA Infusion Protocol Sodium Chloride 1,000 mls @ 75 mls/hr 03/25/20 03:00 Nacl 0.9% 1000 Ml IV DIRECT INDIRA Magnesium Hydroxide 30 ml 03/25/20 02:58 Milk Of Magnesia PO Q4H PRN Constipation Ondansetron HCl 4 mg 03/25/20 02:58 Zofran IV Q8H PRN Nausea And Vomiting Sodium Chloride 10 ml 03/25/20 10:00 03/27/20 12:04 Sodium Chloride Flush Syringe 10 Ml IV 10 ml BID INDIRA Administration Sodium Chloride 10 ml 03/25/20 02:58 Sodium Chloride Flush Syringe 10 Ml IV PRN PRN LINE FLUSH
[2020-03-27] MEDS: AZITHROMYCIN 500 MG in SODIUM CHLORIDE 0.9% 250ML 250 ML IV SCH (12:43)
[2020-03-27] MEDS ORDERED: HYDROcodone/HOMATROPINE 5-1.5MG /5 ML ORAL LIQD UNIT DOSE PO PRN (13:33)
--- NOTE | 2020-03-27 13:33 | Progress Note ---
Assessment and Plan - Patient Problems (1) Acute hypoxemic respiratory failure Current Visit: Yes Status: Acute Plan to address problem: Supplemental oxygen, nebulizer therapy, pulse oximetry, noninvasive positive pressure ventilation as clinically indicated, pulmonary toilet. (2) Acute kidney injury (ARIELLA) with acute tubular necrosis (ATN) Current Visit: Yes Status: Acute Plan to address problem: Nephrology team consulted, IV fluid resuscitation therapy as clinically indicated, monitor urine output every shift, monitor serum creatinine daily (3) Pneumonia Current Visit: Yes Status: Acute Plan to address problem: Pneumonia protocol: Chest x-ray, IV antibiotic therapy, blood culture, nebulizer therapy, pulse oximetry, (4) Suspected COVID-19 virus infection Current Visit: Yes Status: Acute Plan to address problem: Coronavirus positive PCR. Infectious disease service consulted, continue IV steroid therapy, prone positioning while in bed, contact precaution, isolation precautions, pulmonary toilet. (5) DVT prophylaxis Current Visit: Yes Status: Acute Plan to address problem: SCD to bilateral lower extremities while in bed, patient is ambulatory. History Interval history: 65 YO Male HD #3 with Coronavirus Positive PCR on Steroid therapy, ARIELLA with ATN, Pneumonia, Acute Respiratory Failure, Elevated LFT's. Patient acknowledges continued shortness of breath. Patient denies pain. Patient counseled regarding out of bed to chair, early ambulation, and prone positioning while in bed. No reported nursing events overnight. Hospitalist Physical - Constitutional Vitals: Temp Pulse Resp BP Pulse Ox 99.2 F 72 20 119/61 94 03/27/20 04:24 03/27/20 04:24 03/27/20 04:24 03/27/20 04:03/27/20 11:01 General appearance: Present: no acute distress, well-nourished - EENT Eyes: Present: PERRL ENT: hearing intact - Neck Neck: Present: supple - Respiratory Respiratory effort: labored Respiratory: bilateral: diminished - Cardiovascular Rhythm: regular Heart Sounds: Present: S1 & S2 - Extremities Extremities: no ischemia Peripheral Pulses: within normal limits - Abdominal General gastrointestinal: soft, non-tender, non-distended - Integumentary Integumentary: Present: clear, warm, dry - Psychiatric Psychiatric: appropriate mood/affect, cooperative - Neurologic Neurologic: CNII-XII intact HEART Score - HEART Score Troponin: Troponin T 0.027 ng/mL (0.00-0.029) 03/24/20 23:27 Results - Labs CBC & Chem 7: 03/26/20 07:14 03/27/20 04:25 Labs: Laboratory Last Values WBC 11.3 K/mm3 (4.5-11.0) H 03/26/20 07:14 RBC 3.85 M/mm3 (3.65-5.03) 03/26/20 07:14 Hgb 11.7 gm/dl (11.8-15.2) L 03/26/20 07:14 Hct 35.8 % (35.5-45.6) 03/26/20 07:14 MCV 93 fl (84-94) 03/26/20 07:14 MCH 30 pg (28-32) 03/26/20 07:14 MCHC 33 % (32-34) 03/26/20 07:14 RDW 12.7 % (13.2-15.2) L 03/26/20 07:14 Plt Count 467 K/mm3 (140-440) H 03/26/20 07:14 Lymph % (Auto) 7.0 % (13.4-35.0) L 03/26/20 07:14 [place] % (Auto) 12.5 % (0.0-7.3) H 03/26/20 07:14 Eos % (Auto) 0.0 % (0.0-4.3) 03/26/20 07:14 Baso % (Auto) 0.2 % (0.0-1.8) 03/26/20 07:14 Lymph # 0.8 K/mm3 (1.2-5.4) L 03/26/20 07:14 [place] # 1.4 K/mm3 (0.0-0.8) H 03/26/20 07:14 Eos # 0.0 K/mm3 (0.0-0.4) 03/26/20 07:14 Baso # 0.0 K/mm3 (0.0-0.1) 03/26/20 07:14 Seg Neutrophils % 80.3 % (40.0-70.0) H 03/26/20 07:14 Seg Neutrophils # 9.1 K/mm3 (1.8-7.7) H 03/26/20 07:14 PT 13.5 Sec. (12.2-14.9) 03/26/20 07:14 INR 1.05 (0.87-1.13) 03/26/20 07:14 D-Dimer 1436.60 ng/mlDDU (0-234) H 03/24/20 23:27 Sodium 143 mmol/L (137-145) 03/27/20 04:25 Potassium 3.6 mmol/L (3.6-5.0) 03/27/20 04:25 Chloride 101.9 mmol/L (98-107) 03/27/20 04:25 Carbon Dioxide 29 mmol/L (22-30) 03/27/20 04:25 Anion Gap 16 mmol/L 03/27/20 04:25 BUN 62 mg/dL (9-20) H 03/27/20 04:25 Creatinine 1.7 mg/dL (0.8-1.5) H 03/27/20 04:25 Estimated GFR 50 ml/min 03/27/20 04:25 BUN/Creatinine Ratio 36 % 03/27/20 04:25 Glucose 149 mg/dL (75-100) H 03/27/20 04:25 Calcium 8.6 mg/dL (8.4-10.2) 03/27/20 04:25 Phosphorus 3.40 mg/dL (2.5-4.5) 03/27/20 04:25 Magnesium 2.90 mg/dL (1.7-2.3) H 03/27/20 04:25 Ferritin 80678.0 ng/mL (13.0-400.0) H 03/24/20 23:27 Total Bilirubin 1.10 mg/dL (0.1-1.2) 03/26/20 07:14 Direct Bilirubin 0.4 mg/dL (0-0.2) H 03/26/20 07:14 Indirect Bilirubin 0.7 mg/dL 03/26/20 07:14 AST 55 units/L (5-40) H 03/26/20 07:14 ALT 65 units/L (7-56) H 03/26/20 07:14 Alkaline Phosphatase 41 units/L (35-129) 03/26/20 07:14 Lactate Dehydrogenase 933 units/L (91-180) H 07/10/20 23:27 Troponin T 0.027 ng/mL (0.00-0.029) 03/24/20 23:27 C-Reactive Protein 22.90 mg/dL (0.00-1.30) H 03/24/20 23:27 NT-Pro-B Natriuret Pep 158.2 pg/mL (0-900) 03/24/20 23:27 Total Protein 6.5 g/dL (6.3-8.2) 03/26/20 07:14 Albumin 3.0 g/dL (3.9-5) L 03/26/20 07:14 Albumin/Globulin Ratio 0.9 % 03/26/20 07:14 Procalcitonin 6.05 ng/mL (<0.15) 03/24/20 23:27 Coronavirus (PCR) Positive (Negative) A 03/25/20 10:00 Hepatitis A IgM Ab -1 (NonReactive) 03/25/20 03:42 Hep Bs Antigen Non-reactive (Negative) 03/25/20 03:42 Hep B Core IgM Ab Non-reactive (NonReactive) 03/25/20 03:42 Hepatitis C Antibody Non-reactive (NonReactive) 03/25/20 03:42 Microbiology: Microbiology 03/24/20 23:51 Peripheral/Venous Blood Culture - Preliminary NO GROWTH AFTER 48 HOURS 03/24/20 23:27 Peripheral/Venous Blood Culture - Preliminary NO GROWTH AFTER 48 HOURS Steele/IV: Voiding Method Toilet IV Catheter Type [Left INT / Saline Lock Antecubital] Active Medications - Current Medications Current Medications: Generic Name Dose Route Start Last Admin Trade Name Freq PRN Reason Stop Dose Admin Acetaminophen 650 mg 03/25/20 02:58 Tylenol PO Q4H PRN Pain MILD(1-3)/Fever >100.5/SAGASTUME Azithromycin 500 mg 03/28/20 10:00 Zithromax PO QDAY INDIRA Dexamethasone 6 mg 03/25/20 16:00 03/27/20 12:05 Decadron PO 04/04/20 15:59 6 mg DAILY INDIRA Administration Heparin Sodium (Porcine) 5,000 unit 03/25/20 06:00 03/27/20 05:23 Heparin SUB-Q 5,000 unit Q8HR INDIRA Administration Ceftriaxone Sodium 2 gm in 100 mls @ 200 mls/hr 03/25/20 10:00 03/27/20 12:04 Rocephin/Ns 2 Gm/100 Ml IV 200 mls/hr Q24HR INDIRA Administration Protocol Azithromycin 500 mg/ Sodium 250 mls @ 250 mls/hr 03/25/20 10:00 03/27/20 12:43 Chloride IV 03/27/20 14:00 250 mls/hr Q24HR INDIRA Administration Protocol Sodium Chloride 1,000 mls @ 75 mls/hr 03/25/20 03:00 Nacl 0.9% 1000 Ml IV DIRECT INDIRA Magnesium Hydroxide 30 ml 03/25/20 02:58 Milk Of Magnesia PO Q4H PRN Constipation Ondansetron HCl 4 mg 03/25/20 02:58 Zofran IV Q8H PRN Nausea And Vomiting Sodium Chloride 10 ml 03/25/20 10:00 03/27/20 12:04 Sodium Chloride Flush Syringe 10 Ml IV 10 ml BID INDIRA Administration Sodium Chloride 10 ml 03/25/20 02:58 Sodium Chloride Flush Syringe 10 Ml IV PRN PRN LINE FLUSH
--- NOTE | 2020-03-27 15:07 | Progress Note ---
Assessment and Plan Cultures: Coronavirus PCR: Positive Blood culture: in process A/P: 65-year-old male with no significant past medical history came to the emergency room with complaints of cough, shortness of breath and headaches: #Bilateral pneumonia: Secondary to COVID-19. Severely elevated markers. D-dimer 1436, ferritin 07168, AST 149, ALT 95, LDH 933, CRP 22.9, procalcitonin 6.05. S/P Actemra x 1 on 03/25/2020. #Acute hypoxic respiratory failure: #Acute renal failure: Creatinine 4.5 on admission #Elevated LFTs: Likely from COVID-19 and possible cytokine storm Recs: continue IV/PO Dexamethasone 6 mg daily x 10 days Not a candidate for Remdesivir due to renal function prophylactic anticoagulation based on d-dimer but renally adjusted LMWH 0.5 mg/kg q24 hrs trend ferritin, LDH, d-dimer, CRP every 2-3 days for risk stratification and to assess disease progression abx stopped Nuvia Novoa MD, FACP [facility] ([facility] C: [phone] O: [phone] F: [phone] Subjective Date of service: 03/27/20 Interval history: no fever. remains on oxygen. Objective - Exam Narrative Exam: Physical Exam (reviewed in chart due to PPE conservation) Constitutional: limited due to PPE conservation strategy Head, Ears, Nose: limited due to PPE conservation strategy Eyes: limited due to PPE conservation strategy Neck: limited due to PPE conservation strategy Oral: limited due to PPE conservation strategy Cardiovascular: limited due to PPE conservation strategy Respiratory: limited due to PPE conservation strategy GI: limited due to PPE conservation strategy Musculoskeletal: limited due to PPE conservation strategy Skin: limited due to PPE conservation strategy Hem/Lymphatic: limited due to PPE conservation strategy Psych: limited due to PPE conservation strategy Neurological: limited due to PPE conservation strategy - Constitutional Vitals: Vital Signs Temp Pulse Resp BP Pulse Ox 98.0 F 82 22 122/74 93 03/27/20 11:50 03/27/20 11:50 03/27/20 11:50 03/27/20 11:50 03/27/20 11:50 Temperature -Last 24 Hours Temperature 98.0 F Temperature 99.2 F Temperature 98.3 F - Labs CBC & Chem 7: 03/26/20 07:14 03/27/20 04:25 Labs: Abnormal lab results 03/27/20 Range/Units 04:25 BUN 62 H (9-20) mg/dL Creatinine 1.7 H (0.8-1.5) mg/dL Glucose 149 H (75-100) mg/dL Magnesium 2.90 H (1.7-2.3) mg/dL
[2020-03-28] MEDS: HEPARIN 5,000 UNIT/1 ML VIAL SUB-Q SCH (06:03)
[2020-03-28 06:19] LABS: Calcium 8.6 mg/dL (8.4-10.2)
--- NOTE | 2020-03-28 09:30 | Progress Note ---
Assessment and Plan Assessment and plan: 65 YO Male admitted to the hospital with complaints of cough shortness of breath and headache. Today is hospital day 4 with Coronavirus Positive PCR on Steroid therapy, ARIELLA with ATN, Pneumonia, Acute Respiratory Failure, Elevated LFT's. Patient acknowledges continued shortness of breath. Patient denies pain. Patient counseled regarding out of bed to chair, early ambulation, and prone positioning while in bed. No reported nursing events overnight. Patient was noted to have severely elevated markers. S/P Actemra x 1 on 03/25/2020. (1) Acute hypoxemic respiratory failure Current Visit: Yes Status: Acute Plan to address problem: Supplemental oxygen, nebulizer therapy, pulse oximetry, noninvasive positive pressure ventilation as clinically indicated, pulmonary toilet. Continue patient on dexamethasone 6 mg daily for 10 days total still significantly hypoxic down to 79% on exertion will discuss with ID about possible Covasalent therapy (2) Acute kidney injury (ARIELLA) with acute tubular necrosis (ATN) Current Visit: Yes Status: Acute Plan to address problem: Nephrology team consulted, IV fluid resuscitation therapy as clinically indicated, monitor urine output every shift, monitor serum creatinine daily This precludes use of Remdesivir IMPROVED (3) Pneumonia Current Visit: Yes Status: Acute Plan to address problem: Pneumonia protocol: Chest x-ray, IV antibiotic therapy, blood culture, nebulizer therapy, pulse oximetry, (4) COVID-19 virus infection Current Visit: Yes Status: Acute Plan to address problem: Coronavirus positive PCR. Infectious disease service consulted, continue IV steroid therapy, prone positioning while in bed, contact precaution, isolation precautions, pulmonary toilet. (5) Hypokalemia Replace (6) DVT prophylaxis Current Visit: Yes Status: Acute Plan to address problem: SCD to bilateral lower extremities while in bed, patient is ambulatory. History Interval history: Patient seen and examined, still hypoxic on ambulation at 79% Hospitalist Physical - Physical exam Narrative exam: General appearance: Present: no acute distress, well-nourished - EENT Eyes: Present: PERRL ENT: hearing intact - Neck Neck: Present: supple - Respiratory Respiratory effort: labored Respiratory: bilateral: diminished - Cardiovascular Rhythm: regular Heart Sounds: Present: S1 & S2 - Extremities Extremities: no ischemia Peripheral Pulses: within normal limits - Abdominal General gastrointestinal: soft, non-tender, non-distended - Integumentary Integumentary: Present: clear, warm, dry - Psychiatric Psychiatric: appropriate mood/affect, cooperative - Neurologic Neurologic: CNII-XII intact - Constitutional Vitals: Temp Pulse Resp BP Pulse Ox 98.1 F 73 18 127/65 90 03/28/20 04:20 03/28/20 04:20 03/28/20 04:20 03/28/20 04:20 03/28/20 04:20 General appearance: Present: no acute distress, well-nourished HEART Score - HEART Score Troponin: Troponin T 0.027 ng/mL (0.00-0.029) 03/24/20 23:27 Results - Labs CBC & Chem 7: 03/29/20 04:20 03/29/20 04:20 Labs: Laboratory Last Values WBC 11.3 K/mm3 (4.5-11.0) H 03/26/20 07:14 RBC 3.85 M/mm3 (3.65-5.03) 03/26/20 07:14 Hgb 11.7 gm/dl (11.8-15.2) L 03/26/20 07:14 Hct 35.8 % (35.5-45.6) 03/26/20 07:14 MCV 93 fl (84-94) 03/26/20 07:14 MCH 30 pg (28-32) 03/26/20 07:14 MCHC 33 % (32-34) 03/26/20 07:14 RDW 12.7 % (13.2-15.2) L 03/26/20 07:14 Plt Count 467 K/mm3 (140-440) H 03/26/20 07:14 Lymph % (Auto) 7.0 % (13.4-35.0) L 03/26/20 07:14 [place] % (Auto) 12.5 % (0.0-7.3) H 03/26/20 07:14 Eos % (Auto) 0.0 % (0.0-4.3) 03/26/20 07:14 Baso % (Auto) 0.2 % (0.0-1.8) 03/26/20 07:14 Lymph # 0.8 K/mm3 (1.2-5.4) L 03/26/20 07:14 [place] # 1.4 K/mm3 (0.0-0.8) H 03/26/20 07:14 Eos # 0.0 K/mm3 (0.0-0.4) 03/26/20 07:14 Baso # 0.0 K/mm3 (0.0-0.1) 03/26/20 07:14 Seg Neutrophils % 80.3 % (40.0-70.0) H 03/26/20 07:14 Seg Neutrophils # 9.1 K/mm3 (1.8-7.7) H 03/26/20 07:14 PT 13.5 Sec. (12.2-14.9) 03/26/20 07:14 INR 1.05 (0.87-1.13) 03/26/20 07:14 D-Dimer 1436.60 ng/mlDDU (0-234) H 03/24/20 23:27 Sodium 143 mmol/L (137-145) 03/28/20 05:28 Potassium 3.5 mmol/L (3.6-5.0) L 03/28/20 05:28 Chloride 100.4 mmol/L (98-107) 03/28/20 05:28 Carbon Dioxide 31 mmol/L (22-30) H 03/28/20 05:28 Anion Gap 15 mmol/L 03/28/20 05:28 BUN 45 mg/dL (9-20) H 03/28/20 05:28 Creatinine 1.5 mg/dL (0.8-1.5) 03/28/20 05:28 Estimated GFR 57 ml/min 03/28/20 05:28 BUN/Creatinine Ratio 30 % 03/28/20 05:28 Glucose 147 mg/dL (75-100) H 03/28/20 05:28 Calcium 8.6 mg/dL (8.4-10.2) 03/28/20 05:28 Phosphorus 3.40 mg/dL (2.5-4.5) 03/27/20 04:25 Magnesium 2.90 mg/dL (1.7-2.3) H 03/27/20 04:25 Ferritin 14155.0 ng/mL (13.0-400.0) H 03/24/20 23:27 Total Bilirubin 1.10 mg/dL (0.1-1.2) 03/26/20 07:14 Direct Bilirubin 0.4 mg/dL (0-0.2) H 03/26/20 07:14 Indirect Bilirubin 0.7 mg/dL 03/26/20 07:14 AST 55 units/L (5-40) H 03/26/20 07:14 ALT 65 units/L (7-56) H 03/26/20 07:14 Alkaline Phosphatase 41 units/L (35-129) 03/26/20 07:14 Lactate Dehydrogenase 933 units/L (91-180) H 03/24/20 23:27 Troponin T 0.027 ng/mL (0.00-0.029) 03/24/20 23:27 C-Reactive Protein 22.90 mg/dL (0.00-1.30) H 03/24/20 23:27 NT-Pro-B Natriuret Pep 158.2 pg/mL (0-900) 03/24/20 23:27 Total Protein 6.5 g/dL (6.3-8.2) 03/26/20 07:14 Albumin 3.0 g/dL (3.9-5) L 03/26/20 07:14 Albumin/Globulin Ratio 0.9 % 03/26/20 07:14 Procalcitonin 6.05 ng/mL (<0.15) 03/24/20 23:27 Coronavirus (PCR) Positive (Negative) A 03/25/20 10:00 Hepatitis A IgM Ab -1 (NonReactive) 03/25/20 03:42 Hep Bs Antigen Non-reactive (Negative) 03/25/20 03:42 Hep B Core IgM Ab Non-reactive (NonReactive) 03/25/20 03:42 Hepatitis C Antibody Non-reactive (NonReactive) 03/25/20 03:42 Microbiology: Microbiology 03/24/20 23:51 Peripheral/Venous Blood Culture - Preliminary NO GROWTH AFTER 72 HOURS 03/24/20 23:27 Peripheral/Venous Blood Culture - Preliminary NO GROWTH AFTER 72 HOURS Steele/IV: Voiding Method Toilet IV Catheter Type [Left INT / Saline Lock Antecubital] Active Medications - Current Medications Current Medications: Generic Name Dose Route Start Last Admin Trade Name Freq PRN Reason Stop Dose Admin Acetaminophen 650 mg 03/25/20 02:58 Tylenol PO Q4H PRN Pain MILD(1-3)/Fever >100.5/SAGASTUME Dexamethasone 6 mg 03/25/20 16:00 03/27/20 12:05 Decadron PO 04/04/20 15:59 6 mg DAILY INDIRA Administration Heparin Sodium (Porcine) 5,000 unit 03/25/20 06:00 03/28/20 06:03 Heparin SUB-Q 5,000 unit Q8HR INDIRA Administration Hydrocodone Bit/Homatropine Methylb 10 ml 03/27/20 13:33 Hydromet PO Q6H PRN Cough Sodium Chloride 1,000 mls @ 75 mls/hr 03/25/20 03:00 Nacl 0.9% 1000 Ml IV DIRECT INDIRA Magnesium Hydroxide 30 ml 03/25/20 02:58 Milk Of Magnesia PO Q4H PRN Constipation Ondansetron HCl 4 mg 03/25/20 02:58 Zofran IV Q8H PRN Nausea And Vomiting Sodium Chloride 10 ml 03/25/20 10:00 03/27/20 21:47 Sodium Chloride Flush Syringe 10 Ml IV 10 ml BID INDIRA Administration Sodium Chloride 10 ml 03/25/20 02:58 Sodium Chloride Flush Syringe 10 Ml IV PRN PRN LINE FLUSH
[2020-03-28] MEDS ORDERED: POTASSIUM CHLORIDE ER 20 MEQ TAB PO ONE (10:00)
[2020-03-28] MEDS ORDERED: AZITHROMYCIN 250 MG TAB PO SCH (10:00)
[2020-03-28] MEDS: DEXAMETHASONE 4 MG TAB PO SCH (10:04)
[2020-03-28] MEDS: APIXABAN 5 MG TAB PO SCH ×2 (10:04→23:38)
[2020-03-28 10:50] LABS: Alanine Aminotransferase 50 units/L (7-56); Albumin 2.9 g/dL (3.9-5)
[2020-03-28 11:15] LABS: Bilirubin,Direct < 0.2 mg/dL (0-0.2)
[2020-03-29 05:31] LABS: Hematocrit 36.4 % (35.5-45.6); Hemoglobin 11.6 gm/dl (11.8-15.2); Mean Corpuscular HGB Conc 32 % (32-34); Mean Corpuscular Volume 94 fl (84-94); Platelet Count 601 K/mm3 (140-440); Red Blood Count 3.86 M/mm3 (3.65-5.03); Red Cell Distribution Width 12.5 % (13.2-15.2)
[2020-03-29 05:48] LABS: BUN/Creatinine Ratio 28; Blood Urea Nitrogen 33 mg/dL (9-20); Calcium 9.1 mg/dL (8.4-10.2); Hemolysis Index 1
[2020-03-29] MEDS: APIXABAN 5 MG TAB PO SCH (09:58)
--- NOTE | 2020-03-29 10:03 | Event Note ---
Date: 03/29/20 much improved. no need for Remdesivir
[2020-03-29] MEDS: DEXAMETHASONE 4 MG TAB PO SCH (10:39)
--- NOTE | 2020-03-29 11:26 | Discharge Summary ---
Providers - Providers Date of Admission: 03/25/20 02:28 Attending physician: JENNA NORTON MD 03/25/20 03:03 Consult to Physician [CONS] Routine Comment: Consulting Provider: YANCY FREIRE Physician Instructions: Reason For Exam: PNEUMONIA R/O COVID 19 03/25/20 03:05 Consult to Physician [CONS] Routine Comment: Consulting Provider: MOHINI CHOU Physician Instructions: Reason For Exam: ARIELLA 03/25/20 03:15 Consult to Physician [CONS] Routine Comment: Consulting Provider: SALONI VENEGAS Physician Instructions: Reason For Exam: ELEVATED LIVER ENZYMES [facility] Hospital[facility] Condition: Serious Hospital course: 65 YO Male admitted to the hospital with complaints of cough shortness of breath and headache. Today is hospital day 4 with Coronavirus Positive PCR on Steroid therapy, ARIELLA with ATN, Pneumonia, Acute Respiratory Failure, Elevated LFT's. Patient acknowledges continued shortness of breath. Patient denies pain. Patient counseled regarding out of bed to chair, early ambulation, and prone positioning while in bed. No reported nursing events overnight. Patient was noted to have severely elevated markers. S/P Actemra x 1 on 03/25/2020. (1) Acute hypoxemic respiratory failure Current Visit: Yes Status: Acute Plan to address problem: Supplemental oxygen, nebulizer therapy, pulse oximetry, noninvasive positive pressure ventilation as clinically indicated, pulmonary toilet. Continue patient on dexamethasone 6 mg daily for 10 days total still significantly hypoxic down to 79% on exertion yesterday improved today (2) Acute kidney injury (ARIELLA) with acute tubular necrosis (ATN) Current Visit: Yes Status: Acute Plan to address problem: Nephrology team consulted, IV fluid resuscitation therapy as clinically indicated, monitor urine output every shift, monitor serum creatinine daily This precludes use of Remdesivir IMPROVED (3) Pneumonia Current Visit: Yes Status: Acute Plan to address problem: Pneumonia protocol: Chest x-ray, IV antibiotic therapy, blood culture, nebulizer therapy, pulse oximetry, (4) COVID-19 virus infection Current Visit: Yes Status: Acute Plan to address problem: Coronavirus positive PCR. Infectious disease service consulted, continue IV steroid therapy, prone positioning while in bed, contact precaution, isolation precautions, pulmonary toilet. (5) Hypokalemia Replace (6) DVT prophylaxis Current Visit: Yes Status: Acute Plan to address problem: SCD to bilateral lower extremities while in bed, patient is ambulatory. no need for remdisvir per ID Disposition: [id number] HOME UNDER HOME HLTH Exam - Constitutional Vitals: Temp Pulse Resp BP Pulse Ox 97.7 F 78 20 127/85 93 03/29/20 05:35 03/29/20 05:35 03/29/20 05:35 03/29/20 05:35 03/29/20 05:35 Plan Activity: advance as tolerated, fall precautions Diet: low fat Special Instructions: record daily BP diary Additional Instructions: must continue mask use and social distancing precautions Follow up with: PARIS MOHRSANDY MD FIDE [Primary Care Provider] - 3-5 Days SCAR SILVA DO [Staff Physician] - 7 Days Prescriptions: dexAMETHasone [Decadron] 6 mg PO DAILY #8 tablet
[2020-03-29 13:29] VITALS: BP 130/87
== END 2020-03-29 14:58 | disposition home or self-care (01) | DRG 177 ==
LOC: ED 19:37 → 3A 03-25 02:28
PROVIDERS: ADMIT Internal Medicine Geriatric Medicine; ATTEND Internal Medicine
DX: U07.1 COVID-19 (principal); J12.89 Other viral pneumonia; J96.01 Acute respiratory failure with hypoxia; N17.0 Acute kidney failure with tubular necrosis; E87.1 Hypo-osmolality and hyponatremia; R74.0 Nonspecific elevation of levels of transaminase and lactic acid dehydrogenase [LDH]; E87.6 Hypokalemia
CPT/HCPCS: 36415; 71046; 80048; 80053; 80074; 80076; 82728; 83615; 83735; 83880; 84100; 84145; 84484; 85025; 85027; 85379; 85610; 86140; 87040; 93005; 94760; G0378; J0456; J0696; J1644; J2930; J7030; J7050; J8540; U0003-CS